=== PATIENT | male | born 1950 | race Caucasian/White ===

== ENCOUNTER 2017-02-03 11:11 | Day surgery (SDC) | payer OTHER ==
[~2017-02-03] VITALS: Ht 182.9 cm; Wt 90.7 kg
[~2017-02-03 11:11] MED LIST: ACCUPRIL20 MG PO; AMBIEN10 MG PO; ASCORBIC ACID500 M3 PO; ASPIRIN325 MG PO; ASPIRIN81 M1 PO; BUSPAR10 MG PO; BYSTOLIC10 MG PO; BYSTOLIC20 MG PO; CARDIZEM CD,CA360 MG PO; CITRACAL + BON1 EACH PO; COLACE100 MG PO; COLACE50 MG PO; DARVOCET-N 1001 EACH PO; FENOFIBRATE145 M1 PO; FISH OIL 1,2001 EAC4 PO; GLUCOSAMINE &1 EAC1 PO; LEXAPRO10 MG PO; LEXAPRO20 MG PO; LIPITOR20 MG PO; LO-DOSE ASPIRIN81 M1 PO; LYRICA150 MG PO; MIRALAX17 GM PO; MS CONTIN,ORAMO15 M1 PO; MULTIVITAMIN1 EAC1 PO; NEURONTIN300 MG PO; NEURONTIN400 MG PO; NEXIUM20 MG PO; PERCOCET 7.51 TABLET PO; PREVACID15 MG PO; PRILOSEC20 MG PO; QUINAPRIL HCL40 MG PO; SUDAFED 12-HOU120 MG PO; TRICOR145 MG PO; TYLENOL EXTRA500 MG PO; VICODIN,LORT1 TABLET PO; WELCHOL625 MG PO; ZETIA10 MG PO
== END 2017-02-03 13:30 | disposition home or self-care (01) ==
LOC: PAIN 11:11 → SDC 11:45 → PAIN 11:45
PROC: 3E0S33Z Introduction of Anti-inflammatory into Epidural Space, Percutaneous Approach (ICD-10-PCS; principal; 2017-02-03)
DX: M54.16 Radiculopathy, lumbar region (principal); F41.9 Anxiety disorder, unspecified; M47.816 Spondylosis without myelopathy or radiculopathy, lumbar region; M51.36 Other intervertebral disc degeneration, lumbar region; M48.06 Spinal stenosis, lumbar region; M19.90 Unspecified osteoarthritis, unspecified site; M79.7 Fibromyalgia; I25.10 Atherosclerotic heart disease of native coronary artery without angina pectoris; N40.0 Benign prostatic hyperplasia without lower urinary tract symptoms; F32.9 Major depressive disorder, single episode, unspecified; K21.9 Gastro-esophageal reflux disease without esophagitis; E78.5 Hyperlipidemia, unspecified; I10 Essential (primary) hypertension; Z79.82 Long term (current) use of aspirin
CPT/HCPCS: J1100; J2250; J3010

== ENCOUNTER 2018-05-01 22:00 | Inpatient (IN) | payer OTHER ==
[~2018-05-01] VITALS: Ht 182.9 cm; Wt 88.4 kg
[~2018-05-01 22:00] MED LIST changes: +ACCURETIC 201 TABLET PO; -BYSTOLIC10 MG PO; +ZANAFLEX2 M1 PO
[2018-05-02 06:05] VITALS: BP 148/77
[2018-05-02] MEDS ORDERED: AMBIEN10 MG PO (06:21)
[2018-05-02 11:50] VITALS: BP 170/83
[2018-05-02 15:58] VITALS: BP 133/79
[2018-05-02 19:55] VITALS: BP 174/83
[2018-05-03 00:25] VITALS: BP 154/75
[2018-05-03 04:00] VITALS: BP 168/89
[2018-05-03 05:49] LABS: HEMATOCRIT 34.8 % (38.0-50.0); MCV 92.3 FL (86-99)
[2018-05-03 05:52] LABS: HEMOGLOBIN 11.4 G/DL (12.5-16.6)
[2018-05-03 06:13] LABS: CHLORIDE 103 MEQ/L (99-109); GFR ESTIMATE (CALCULATED) > 59 mL/min/ (58.99-99999); GLUCOSE 139 mg/dL (70-99); SODIUM 139 MEQ/L (136-147); UREA NITROGEN (BUN) 14 mg/dL (9-23)
[2018-05-03 08:19] VITALS: BP 141/73
[2018-05-03 12:24] VITALS: BP 125/71
[2018-05-03 16:00] VITALS: BP 123/63
[2018-05-03 20:17] VITALS: BP 136/69
[2018-05-04 00:25] VITALS: BP 110/61
[2018-05-04 04:30] VITALS: BP 98/60
[2018-05-04 06:04] LABS: HEMATOCRIT 32.8 % (38.0-50.0); HEMOGLOBIN 10.6 G/DL (12.5-16.6); MCV 91.4 FL (86-99)
[2018-05-04 08:15] VITALS: BP 122/74
[2018-05-04] MEDS ORDERED: BENADRYL25 MG PO (09:07)
[2018-05-04] MEDS ORDERED: ELIQUIS2.5 MG PO (09:13)
[2018-05-04] MEDS ORDERED: OXYCODONE HCL5 MG PO (09:13)
[2018-05-04 12:22] VITALS: BP 102/61
== END 2018-05-04 14:40 | DRG 470 ==
LOC: ENRESERV 22:00 → 2SOUTH 05-02 05:45 → 3WEST 05-02 11:16 → 2SOUTH 05-02 11:34 → 3WEST 05-04 14:40
PROVIDERS: Orthopaedic Surgery
PROC: 0SR902A Replacement of Right Hip Joint with Metal on Polyethylene Synthetic Substitute, Uncemented, Open Approach (ICD-10-PCS; principal; 2018-05-02)
DX: M16.11 Unilateral primary osteoarthritis, right hip (principal); K59.00 Constipation, unspecified
CPT/HCPCS: 73501; 80048; 85014; 85018; 94799; 97530 GO; C1713; J0690; J1170; J2250; J3010; J7050; S0020